=== PATIENT | male | born 1995 | race Caucasian/White ===

== ENCOUNTER 2017-10-16 08:37 | Day surgery (SDC) | payer OTHER ==
[~2017-10-16 08:37] MED LIST: Buffered Lidocaine 0.9% SYRIN* 5 ML/SYR SYRINGE INTRADERM ONE; Dexamethasone IV* 4 MG/ML 1 ML (4 MG) IV SLOW PU ONE; Famotidine IV* 10 MG/ML 2 ML (20 mg) IV ONE
[2017-10-16] MEDS ORDERED: ceFAZolin 2 GM PREMIX (*) 2 GM/50 ML BAG IVPB ONE (08:51)
[2017-10-16] MEDS ORDERED: Famotidine IV* 10 MG/ML 2 ML (20 mg) ONE (08:51)
[2017-10-16] MEDS ORDERED: Buffered Lidocaine 0.9% SYRIN* 5 ML/SYR SYRINGE ONE (08:51)
[2017-10-16] MEDS ORDERED: Dexamethasone IV* 4 MG/ML 1 ML (4 MG) ONE (08:51)
[2017-10-16] MEDS ORDERED: oxyCODONE/Acetamin 5/325 MG* TAB PO PRN (09:32)
[2017-10-16] MEDS ORDERED: fentaNYL* 50 MCG/ML 2 ML VIAL (100 MCG VIAL) IV PRN (09:32)
[2017-10-16] MEDS ORDERED: DiMENhydriNATE IV* 50 MG/ML VIAL IV PUSH PRN (09:32)
[2017-10-16] MEDS ORDERED: Ondansetron INJ* 2 MG/ML VIAL IV PRN (09:32)
[2017-10-16] MEDS ORDERED: fentaNYL* 50 MCG/ML 5 ML VIAL (250 MCG VIAL) ONE (09:38)
[2017-10-16] MEDS ORDERED: Midazolam* 1 MG/ML 2 ML VIAL (2 MG) ONE (09:38)
[2017-10-16] MEDS ORDERED: Ketorolac INJ* 30 MG/ML 1 ML VIAL ONE (09:39)
[2017-10-16] MEDS ORDERED: Lidocaine 2% PF * 5 ML VIAL ONE (09:39)
[2017-10-16] MEDS ORDERED: Ondansetron INJ* 2 MG/ML VIAL ONE (09:39)
[2017-10-16] MEDS ORDERED: Propofol* 10 MG/ML 20 ML BTL IV PUSH ONE (09:39)
[2017-10-16] MEDS ORDERED: Bupivacaine 0.25% SDV* 30 ML ONE (09:58)
[2017-10-16] MEDS ORDERED: Lidocaine 1% MPF* 2 ML VIAL ONE (09:58)
[2017-10-16] MEDS ORDERED: Lidocaine 1.5% EPI 1:200,000* 30 ML SDV ONE (09:58)
[2017-10-16] MEDS ORDERED: Lidocaine 1% INJ* 10 MG/ML 30 ML SDV ONE (09:59)
[2017-10-16] MEDS ORDERED: Lidocaine 1% MPF wEPI 200,000* 30 ML SDV ONE (11:18)
[2017-10-16] MEDS ORDERED: fentaNYL* 50 MCG/ML 2 ML VIAL (100 MCG VIAL) ONE ×2 (12:55→15:06)
[2017-10-16] MEDS ORDERED: Desflurane* 240 ML INH ONE (12:56)
[2017-10-16 15:26] VITALS: BP 116/59
--- NOTE | 2017-10-16 21:26 | RAD ---
HISTORY: Triquetral fracture COMPARISONS: CT dated October 06, 2017 TECHNIQUE: Fluoroscopy was provided for a surgical procedure. Total fluoroscopy time is: 36 seconds FINDINGS: Spot images demonstrate post surgical change to the triquetral bone. IMPRESSION: FLUOROSCOPY WAS PROVIDED FOR A SURGICAL PROCEDURE CPT II Codes: 6045F
--- NOTE | 2017-10-17 12:13 | OP ---
DATE OF OPERATION: 10/16/17 [facility] DATE OF : 89 SURGEON: Adama Oswald MD. COFFEE GROWER: RAYMUNDO Trinh. ANESTHESIOLOGIST: Dr. Okeefe. ANESTHESIA: General. 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 OPERATIVE PROCEDURE: 1. Diagnostic right wrist arthroscopy with partial synovectomy. 2. Right open osteochondral nonunion fragment excision with microfracture and suture repair of triquetral nonunion fragment with mini Mitek suture anchors. INDICATIONS: Jose had an injury many months ago. The ulnar side of the wrist has gone onto persistently bother him. He had x-rays, MRIs, and then got a CT scan to delineate the nonunion. He had a very proximal osteochondral fragment that looked avascular on the MRI. I told him we probably have to excise and I would microfracture the area. On the CT scan, it looked like he had an avulsion nonunion of the dorsal rim of the triquetrum that was not displaced but it did look like there was a bit of a nonunion there. ESTIMATED BLOOD LOSS: 5 mL. COMPLICATIONS: None. FINDINGS: As expected. See above and below. DESCRIPTION OF PROCEDURE: Jose was seen in the preoperative hold area. The correct side, site, and the procedure were identified. We came back to operating room. The arm was prepped and draped in usual fashion. We had a time -out. The arm was placed in the Acumed traction tower with the use of the finger traps. Appropriate traction was placed. The arm was exsanguinated and the tourniquet inflated to 250 mmHg. I began by making a 3-4 portal with a 11 blade followed by the mosquito and then the blunt trocar was introduced in the 3-4 portal. The camera was introduced there. The diagnostic arthroscopy was begun. The radial-sided structures, the lunate fossa and visualized proximal pole of the lunate looked very good. I then came ulnar and created a 4-5 portal. The camera was placed into the 4-5 portal. A 6R portal was created and a probe was placed into the 6R portal. I then brought in the shaver. I went ahead and debrided some dorsal synovitis. The visualization was poor. I decided not to do any harm with the scope, I therefore went up to the mid carpal portal. I developed a radial mid carpal portal in similar fashion and introduced the camera there. I then developed an ulnar midcarpal portal and introduced the probe there. There was a quite a bit of synovitis and so I brought in the shaver and performed a partial synovectomy there. After the synovitis was excised, I was able to visualize the lunar triquetrum and scapholunate intervals. The scapholunate interval looked very stable. I was not able to place the probe between the scaphoid and lunate, it looked very nicely aligned. The lunar triquetral joint looked nicely aligned, however, I was able to place the probe and twist it a bit. I was not able to make a full revolution with the probe but I definitely could induce a little gapping. At this point, I thought we have to open the wrist to perform the remainder of the procedure and so we removed arthroscopic equipment and handed it off. I incorporated my ulnar-midcarpal portal and my 4-5 portal and made a longitudinal incision over the dorsal ulnar aspect of the wrist. Dissection was carried down longitudinally and full thickness flaps were raised off the extensor retinaculum. The extensor retinaculum was incised over the 5th dorsal compartment, the EDM tendon was mobilized and retracted ulnarly. I came dorsal to the TFCC and made a transverse capsulotomy. This was then brought longitudinally distally to expose the dorsum of the triquetrum and dorsal lunar triquetral joint. The dorsal lunar triquetral ligament was preserved throughout the case. The osteochondral fragment was completely loose proximally. It was definitely nonviable. I went ahead and took a [place] blade and excised out the loose osteochondral fragment off the proximal pole of the triquetrum. This created a decent sized void where this was located. I took the microfracture awls and made 2 microfracture holes in the bed of the osteochondral fragment excision. At this point, I decided to address the rest of the triquetrum nonunion. It was mobilized. It was not large enough to take a screw, so I went ahead and placed 2 mini Mitek suture anchors in the bed of nonunion. I had placed a third prior to that, but I did not like the placement of that, so I went ahead and got better exposure and then placed 2 mini Mitek suture anchors in the bed of the nonunion. This was then suture fixed and placed with a 2- 0 Ethibond suture. Everything was nicely secured and tight. It was very stable. I therefore irrigated out the wound. The capsulotomy was closed with 4-0 Vicryl suture. The extensor retinaculum was closed with 4-0 Vicryl suture. The EDM tendon was left transposed. The skin was closed with 3- 0 Monocryl suture and Steri- Strips. The operative area was infiltrated with 0.25% plain Marcaine. The wound was dressed with 4x4, sterile Webril, and a cockup wrist splint was applied. Tourniquet was deflated and the hand pinked up immediately. He was then woken up and taken to recovery room in stable condition. [id number]/[facility] #: [id number] JUNIOR
== END 2017-10-16 16:03 | disposition home or self-care (01) ==
LOC: OR 08:37
PROVIDERS: ATTEND Orthopaedic Surgery Hand Surgery
DX: S62.111K Displaced fracture of triquetrum [cuneiform] bone, right wrist, subsequent encounter for fracture with nonunion (principal); W22.8XXD Striking against or struck by other objects, subsequent encounter; Y92.9 Unspecified place or not applicable
CPT/HCPCS: 88304; 88311; A9270-GY; C1713; J0690; J1100; J1885; J2001; J2250; J2405; J2704; J3010